=== PATIENT | male | born 1975 ===

== ENCOUNTER 2019-11-28 14:05 | Emergency (ER) | payer OTHER ==
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
[2019-11-28] MEDS ORDERED: Orphenadrine 60 MG/2 ML Inj IM ONE (14:41)
[2019-11-28] MEDS ORDERED: Ketorolac 60 MG/2 ML SDV IM ONE (14:41)
[2019-11-28] MEDS ORDERED: Cyclobenzaprine 10 MG Tab PO ONE (15:26)
[2019-11-28] MEDS ORDERED: Ibuprofen 800 MG Tab PO ONE (15:26)
--- NOTE | 2019-11-28 15:31 | CR ---
INDICATION: Left lower leg pain. TECHNIQUE: Four views left tibia and fibula. FINDINGS: Mild degenerate arthritis left knee. No acute fracture or dislocation in left tibia or fibula. Remainder negative. Dictated by Cristi Boone MD @ Nov 28 2019 3:29PM Signed by Dr. Cristi Boone @ Nov 28 2019 3:31PM
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
== END 2019-11-28 16:15 | disposition home or self-care (01) ==
LOC: MW.ED 14:05
DX: M54.2 Cervicalgia (principal); M79.605 Pain in left leg
CPT/HCPCS: 72125; 73590; 99284; A9270